=== PATIENT | female | born 1980 | race Caucasian/White ===

== ENCOUNTER 2018-11-24 14:10 | Emergency (ER) | payer MEDICAID ==
[~2018-11-24] VITALS: Ht 154.9 cm; Wt 56.8 kg
[~2018-11-24 14:10] MED LIST: LIDOcaine 1% W/epiNEPHrine 1:100,000 20ml vial ONE
[2018-11-24 14:17] VITALS: BP 133/98
[2018-11-24] MEDS ORDERED: triamcinolone acetonide 40mg/ml inj IM ONE (15:00)
[2018-11-24] MEDS ORDERED: CYCL-1 PO (15:03)
== END 2018-11-24 15:31 | disposition home or self-care (01) ==
LOC: ER 14:12
DX: S16.1XXA Strain of muscle, fascia and tendon at neck level, initial encounter (principal); F15.90 Other stimulant use, unspecified, uncomplicated; F11.90 Opioid use, unspecified, uncomplicated; Z88.6 Allergy status to analgesic agent; Z88.5 Allergy status to narcotic agent; X50.1XXA Overexertion from prolonged static or awkward postures, initial encounter; Y93.89 Activity, other specified; Y92.89 Other specified places as the place of occurrence of the external cause; Y99.9 Unspecified external cause status
CPT/HCPCS: 20552; 96372; 99284; J3301; 99283

== ENCOUNTER 2020-04-18 15:58 | Emergency (ER) | payer MEDICAID ==
[~2020-04-18] VITALS: Ht 154.9 cm; Wt 44.0 kg
[~2020-04-18 15:58] MED LIST changes: +CYCL-1 PO; -LIDOcaine 1% W/epiNEPHrine 1:100,000 20ml vial ONE
[2020-04-18 16:01] VITALS: BP 148/89
== END 2020-04-18 18:07 | disposition home or self-care (01) ==
LOC: ER 15:59
DX: H92.01 Otalgia, right ear (principal); Z00.00 Encounter for general adult medical examination without abnormal findings; F11.90 Opioid use, unspecified, uncomplicated; F15.90 Other stimulant use, unspecified, uncomplicated; Z72.89 Other problems related to lifestyle; Z87.440 Personal history of urinary (tract) infections; Z79.899 Other long term (current) drug therapy
CPT/HCPCS: 99281

== ENCOUNTER 2022-02-02 12:36 | Emergency (ER) | payer MEDICAID ==
[~2022-02-02] VITALS: Ht 154.9 cm; Wt 47.0 kg
[2022-02-02 12:55] VITALS: BP 146/96
[2022-02-02] MEDS ORDERED: TRAM50TA2 PO (16:43)
== END 2022-02-02 17:07 | disposition home or self-care (01) ==
LOC: ER 12:37
DX: S13.4XXA Sprain of ligaments of cervical spine, initial encounter (principal); F17.200 Nicotine dependence, unspecified, uncomplicated; F15.10 Other stimulant abuse, uncomplicated; Z87.448 Personal history of other diseases of urinary system; Z79.899 Other long term (current) drug therapy; Z88.6 Allergy status to analgesic agent; Z88.5 Allergy status to narcotic agent; V89.2XXA Person injured in unspecified motor-vehicle accident, traffic, initial encounter; Y93.89 Activity, other specified; Y92.89 Other specified places as the place of occurrence of the external cause; Y99.8 Other external cause status
CPT/HCPCS: 72125; 99284